=== PATIENT | male | born 1970 | race Caucasian/White ===

== ENCOUNTER 2018-01-16 08:58 | Outpatient (CLI) | payer OTHER ==
--- NOTE | 2018-01-16 11:11 | RAD ---
3 VIEWS LEFT FOOT: Date: 01/16/18 COMPARISON: None. HISTORY: Intermittent left foot pain. FINDINGS: Three views of the left foot show postsurgical change in the great toe. There is no evidence of acute fracture or dislocation. No significant degenerative changes are seen. IMPRESSION: No evidence of acute osseous abnormality. POS: [facility]
--- NOTE | 2018-01-16 11:13 | RAD ---
3 VIEWS RIGHT FOOT: Date: 01/16/18 HISTORY: Pain on and off in the right foot. COMPARISON: None available. FINDINGS: There are postsurgical changes related to osteotomy involving the distal right first metatarsal. 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 No acute fracture or dislocation is seen. No other osseous abnormality. IMPRESSION: 1. No acute osseous abnormality of the right foot. 2. Postsurgical changes right first metatarsal. POS: [facility]
== END 2018-01-16 08:59 | disposition home or self-care (01) ==
LOC: MADRAD 08:58
PROVIDERS: ATTEND Orthopaedic Surgery
DX: S92.321A Displaced fracture of second metatarsal bone, right foot, initial encounter for closed fracture (principal); S92.342A Displaced fracture of fourth metatarsal bone, left foot, initial encounter for closed fracture; Z98.1 Arthrodesis status